=== PATIENT | female | born 1980 | race American Indian/Alaskan Native ===

== ENCOUNTER 2016-09-01 00:37 | Emergency (ER) | payer MEDICAID, OTHER ==
[2016-09-01 01:14] VITALS: O2SAT 99
--- NOTE | 2016-09-01 02:01 | C.PDOC ---
History Of Present Illness A 36 y/o female c/o itchy rash to the left facial area for 3 days. Pt was seen by PMD and was placed on Clindamycin and mupirocin ointment. Pt states that the area feels swollen and itchy which prompted visit. Pt denies fever, chills, known allergens, nausea, vomiting, skin discharge, or any other complaints. Time Seen by Provider: 09/01/16 01:27 Chief Complaint (Nursing): Abnormal Skin Integrity History Per: Patient History/Exam Limitations: no limitations Onset/Duration Of Symptoms: Days Current Symptoms Are (Timing): Still Present Location Of Injury: Anterior: Face Quality Of Symptoms: Itching, Swollen Severity: Mild Recent travel outside of the [place]: No Additional History Per: Patient Past Medical History Reviewed: Historical Data, Nursing Documentation, Vital Signs Vital Signs: Last Vital Signs Temp 98.1 F 09/01/16 02:09 Pulse 79 09/01/16 02:09 Resp 18 09/01/16 02:09 BP 129/88 09/01/16 02:09 Pulse Ox 99 09/01/16 03:53 Family History: States: Unknown Family Hx - Social History Hx Alcohol Use: No Hx Substance Use: No - Immunization History Hx Influenza Vaccination: Yes Hx Pneumococcal Vaccination: No Review Of Systems Constitutional: Negative for: Fever, Chills ENT: Negative for: Mouth Swelling, Throat Swelling Gastrointestinal: Negative for: Nausea, Vomiting Skin: Positive for: Rash (Itchy rash to the left facial area). Negative for: Other (Discharge) Physical Exam - Physical Exam Appears: Non-toxic, No Acute Distress Skin: Warm, Dry, Other (erythematous macular rash with localized swelling to the right maxilla area extending to the right nasal area. No vesicular lesions, no open lesions.) Head: Atraumatic, Normacephalic Eye(s): bilateral: Normal Inspection, PERRL, EOMI Oral Mucosa: Moist, No Drooling Lips: Normal Appearing, No Swelling Throat: Normal, No Erythema, No Exudate Cardiovascular: Rhythm Regular Respiratory: Normal Breath Sounds, No Wheezing Gastrointestinal/Abdominal: Normal Exam, Bowel Sounds, Soft, No Tenderness Back: Normal Inspection Neurological/Psych: Oriented x3, Normal Speech ED Course And Treatment O2 Sat by Pulse Oximetry: 99 (RA) Pulse Ox Interpretation: Normal Progress Note: Impression: 36 y/o female c/o itchy rash to the left facial area for 3 days. Plans: benadryl, PreniSONE, reassess. On reassessment, patient is resting comfortably, and is in no acute distress. Patient was instructed to follow up with physician/clinic in 1-2 days for further evaluation. Disposition Counseled Patient/Family Regarding: Diagnosis, Need For Followup - Disposition Referrals: Abram Amin MD [Staff Provider] - Disposition: HOME/ ROUTINE Disposition Time: 01:58 Condition: STABLE Additional Instructions: Please continue current meds Follow up with PMD Return to ER if worse Prescriptions: Clindamycin [Cleocin Pediatric] 300 mg PO QID #1 bot DiphenhydrAMINE [Benadryl] 25 mg PO QID #14 cap predniSONE [Prednisone] 40 mg PO DAILY #8 tab Instructions: Contact Dermatitis (ED) Forms: Work Excuse - Clinical Impression Clinical Impression: Allergic contact dermatitis - Scribe Statement The provider has reviewed the documentation as recorded by the Ayahibaubrie mckinnon All medical record entries made by the Ayahibaubrie were at my direction and personally dictated by me. I have reviewed the chart and agree that the record accurately reflects my personal performance of the history, physical exam, medical decision making, and the department course for this patient. I have also personally directed, reviewed, and agree with the discharge instructions and disposition.
[2016-09-01 02:18] VITALS: BP 129/88; PULSE 79; RESP 18; TEMP 98.1
== END 2016-09-01 02:11 | disposition home or self-care (01) ==
LOC: C.ER 00:37
DX: L23.9 Allergic contact dermatitis, unspecified cause (principal)

== ENCOUNTER 2016-10-30 09:57 | Emergency (ER) | payer OTHER ==
[2016-10-30 10:03] VITALS: O2SAT 100
[2016-10-30 10:41] LABS: RBC URINE 9 /hpf (0-3); URINE BILIRUBIN NEGATIVE (NEGATIVE); URINE BLOOD 1+ (NEGATIVE); URINE COLOR Yellow (YELLOW); URINE GLUCOSE (UA) NORMAL (Normal); URINE KETONE NEGATIVE (NEGATIVE); URINE LEUKOCYTE ESTERASE NEG Leu/uL (Negative); URINE PROTEIN NEGATIVE (NEGATIVE); URINE UROBILINOGEN NORMAL mg/dL (0.2-1.0); WBC URINE 1 /hpf (0-5)
[2016-10-30] MEDS ORDERED: cefTRIAXone (Rocephin) 250 mg Inj IM STA (11:35)
--- NOTE | 2016-10-30 11:45 | C.PDOC ---
History Of Present Illness 36 y/o female presents to ED with complaints of vaginal itching and concerns for STD. Patient states she is sexually active unprotected with boyfriend who was active with someone else. Patient reports using Monistat and wad going to follow up but OBGYN not available today. Patient denies dysuria, hematuria, lesions, abdominal pain, nausea, vomiting or any other complaints at this time. Time Seen by Provider: 10/30/16 10:29 Chief Complaint (Nursing): Female Genitourinary History Per: Patient History/Exam Limitations: no limitations Onset/Duration Of Symptoms: Days Current Symptoms Are (Timing): Still Present Past Medical History Reviewed: Historical Data, Nursing Documentation, Vital Signs Vital Signs: Last Vital Signs Temp 99.1 F 10/30/16 11:47 Pulse 92 H 10/30/16 11:47 Resp 20 10/30/16 11:47 BP 158/88 H 10/30/16 11:47 Pulse Ox 100 10/30/16 12:09 - Medical History PMH: HTN Family History: States: Unknown Family Hx - Social History Hx Alcohol Use: No Hx Substance Use: No - Immunization History Hx Influenza Vaccination: Yes Hx Pneumococcal Vaccination: No Review Of Systems Except As Marked, All Systems Reviewed And Found Negative. Constitutional: Negative for: Fever, Chills Gastrointestinal: Negative for: Nausea, Vomiting, Abdominal Pain Genitourinary: Negative for: Dysuria, Hematuria, Vaginal Discharge Skin: Negative for: Rash, Lesions Physical Exam - Physical Exam Appears: Non-toxic, No Acute Distress Skin: Normal Color, Warm, No Rash Head: Atraumatic, Normacephalic Oral Mucosa: Moist Chest: Symmetrical Gastrointestinal/Abdominal: Soft, No Tenderness, No Guarding, No Rebound Pelvic: Normal External Exam, No Vaginal Bleeding, Vaginal Discharge (Witish constant with monistat]) Neurological/Psych: Oriented x3, Normal Speech ED Course And Treatment O2 Sat by Pulse Oximetry: 100 (RA) Pulse Ox Interpretation: Normal Medical Decision Making Medical Decision Making: Patient treated STD and advised to have safe sex Disposition Counseled Patient/Family Regarding: Diagnosis, Need For Followup - Disposition Disposition: HOME/ ROUTINE Disposition Time: 11:43 Condition: STABLE Additional Instructions: 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 Practice safe sex. Forms: General Discharge Instructions, Work/School/Gym Excuse - POA Present On Arrival: None - Clinical Impression Clinical Impression: Vaginal itching - Scribe Statement The provider has reviewed the documentation as recorded by the Ayahibaubrie Gray All medical record entries made by the Ayahibaubrie were at my direction and personally dictated by me. I have reviewed the chart and agree that the record accurately reflects my personal performance of the history, physical exam, medical decision making, and the department course for this patient. I have also personally directed, reviewed, and agree with the discharge instructions and disposition.
[2016-10-30 11:48] VITALS: BP 158/88; PULSE 92; RESP 20; TEMP 99.1
[2016-10-30] MEDS ORDERED: cefTRIAXone 250 MG in Lidocaine Hydrochloride 0.9 ML IM ONE (12:00)
== END 2016-10-30 12:01 | disposition home or self-care (01) ==
LOC: C.ER 09:57
DX: L29.8 Other pruritus (principal)
CPT/HCPCS: 81001; 84703; 96372; 99284; J0696

== ENCOUNTER 2017-04-30 02:56 | Emergency (ER) | payer SELFPAY ==
[2017-04-30 03:10] VITALS: BP 131/92; PULSE 76; RESP 20; TEMP 98.8; O2SAT 99
--- NOTE | 2017-04-30 03:46 | C.PDOC ---
History Of Present Illness 36 year old female presents complaining of sensation of foreign body to the right ear, onset tonight. Denies any associated pain, drainage, fever, or loss of hearing. Patient states she noticed bugs at home, and became increasingly concerned. Time Seen by Provider: 04/30/17 03:14 Chief Complaint (Nursing): ENT Problem History Per: Patient History/Exam Limitations: None Onset/Duration Of Symptoms: Days (x1) Current Symptoms Are (Timing): Still Present Quality (Ear): Foreign Body Anticoagulant/Antiplatlet Use?: No Recent Aspirin Use: No Past Medical History Reviewed: Historical Data, Nursing Documentation, Vital Signs Vital Signs: Last Vital Signs Temp 98.8 F 04/30/17 03:06 Pulse 76 04/30/17 03:06 Resp 20 04/30/17 03:06 BP 131/92 H 04/30/17 03:06 Pulse Ox 99 04/30/17 04:15 - Medical History PMH: HTN Surgical History: Family History: States: Unknown Family Hx - Social History Hx Alcohol Use: No Hx Substance Use: No - Immunization History Hx Influenza Vaccination: Yes Hx Pneumococcal Vaccination: No Review Of Systems Except As Marked, All Systems Reviewed And Found Negative. Constitutional: Negative for: Fever, Chills ENT: Positive for: Other (foreign body sensation, right ear). Negative for: Ear Pain, Ear Discharge Physical Exam - Physical Exam Appears: Non-toxic, No Acute Distress Skin: Normal Color, Warm, Dry Head: Atraumatic, Normacephalic Eye(s): bilateral: Normal Inspection, PERRL, EOMI Ear(s): Bilateral: Other (Cerumen noted. No foreign body. No discharge, tenderness, or erythema) Nose: Normal Oral Mucosa: Moist Throat: Normal Neck: Trachea Midline, Supple ED Course And Treatment O2 Sat by Pulse Oximetry: 99 (RA) Pulse Ox Interpretation: Normal Progress Note: No foreign body on exam. Discussed normal exam findings with patient. Advised follow up with PMD. Patient is agreeable with discharge plan and understands return precautions. 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 - Scribe Statement The provider has reviewed the documentation as recorded by the Scribe (Sandra Berry) All medical record entries made by the Scribe were at my direction and personally dictated by me. I have reviewed the chart and agree that the record accurately reflects my personal performance of the history, physical exam, medical decision making, and the department course for this patient. I have also personally directed, reviewed, and agree with the discharge instructions and disposition.
== END 2017-04-30 03:58 | disposition home or self-care (01) ==
LOC: C.ER 02:56
DX: H92.01 Otalgia, right ear (principal); I10 Essential (primary) hypertension